=== PATIENT | male | born 2000 | race Caucasian/White ===

== ENCOUNTER 2022-05-12 23:31 | Emergency (ER) | payer SELFPAY ==
[2022-05-12 23:41] VITALS: BP 142/82; PULSE 82; RESP 18; TEMP 97.8; BMI 29.7
[2022-05-13] MEDS ORDERED: FLUORESCEIN NA 1 EA STRIP OD ONE (02:24)
[2022-05-13] MEDS ORDERED: TETRACAINE 0.5% HCL 0.6ML DROPPER.BOTTLE OD ONE (02:24)
[2022-05-13] MEDS ORDERED: TETRACAINE 0.5% OPHTH SOLN 2 ML BOTTLE ONE (02:28)
== END 2022-05-13 04:23 | disposition home or self-care (01) ==
LOC: JER 23:31
DX: T15.01XA Foreign body in cornea, right eye, initial encounter (principal)
CPT/HCPCS: 99283-25